=== PATIENT | female | born 2000 | race Two or more races ===

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

== ENCOUNTER 2019-08-29 12:53 | Emergency (ER) | payer OTHER, SELFPAY ==
[2019-08-29 12:54] VITALS: BP 125/88; PULSE 120; RESP 16; TEMP 37; O2SAT 98; BMI 38.7
--- NOTE | 2019-08-29 13:17 | HMH.EDWNDL ---
ED Disposition Clinical Impression: Candidiasis Disposition: Home, Self-Care Condition on Discharge: Good Instructions: DI for Yeast Infection-Skin Prescriptions: Fluconazole 150 mg PO ONCE #1 tab Prescription Printed Referrals: Pia Bettencourt [Primary Care Provider] - 3 days - Critical Care Critical Care Time: No Attestation: On 08/29/19, the high probability of a clinically significant, sudden or life threatening deterioration of the following system(s) required my full and direct attention, intervention and personal management. The time I documented below is in addition to time spent performing reported procedures but includes the following listed in this critical care notation. Medical Decision Making - Medical Records Medical records reviewed: Yes: I reviewed the patient's medical records. - Xavi Inquiry Pt receiving controlled substance: No Vital Signs: 08/29/19 12:54 Temperature 98.6 F Temperature Source Oral Pulse Rate [Left Radial] 120 H Respiratory Rate 16 Blood Pressure [Right Arm] 125/88 Blood Pressure Mean [Right Arm] 100 Blood Pressure Position [Right Arm] Sitting 02 Sat by Pulse Oximetry 98 Oxygen Delivery Method Room Air Orders (Tests/Meds): ED MEDICATIONS Generic Name Dose Route Start Last Admin Trade Name Sourav PRN Reason Stop Dose Admin Fluconazole 150 mg 08/29/19 13:15 08/29/19 13:16 Diflucan 200mg Tablet PO 09/05/19 13:14 150 mg DAILY ALEJANDRA Administration Protocol Medical Decision Narrative: Trace blood present around the umbilicus and there is an odor coming from the area of that is most consistent with candidiasis. Given fluconazole here and discharged home with prescription for the same to take on 08/31/2019. If she develops fevers or symptoms do not improve with this treatment, advised follow-up with PCP to consider antibiotic. Currently there are no signs of cellulitis or abscess. She has no abdominal pain/drainage that would suggest acute intra-abdominal infection, communicating fistula, abscess at this time. Wound/Laceration HPI - General Chief Complaint: Wound/Laceration Stated Complaint: belly button bleeding Time Seen by Provider: 08/29/19 13:18 Mode of Arrival: Ambulatory Limitations: No Limitations Description of Symptoms (Recalled from ER Triage Doc. by RN): to ed per pvt car with c/o bleeding in by belly button and pain around area x 2 days - History of Present Illness HPI narrative: This is a 18-year-old female with a past medical history significant for hypertension, anxiety who presents to the emergency department for evaluation of minimal bleeding from her umbilicus for the last 2 days. No known trauma. No fevers. This is not happened to her before. No abdominal pain. She just has pain around the umbilicus. No nausea, vomiting, urinary symptoms. - Related Data Home Medications Medication Instructions Recorded Confirmed fluoxetine 40 mg capsule 40 mg PO DAILY cap 05/13/19 05/13/19 hydroxyzine HCl 25 mg tablet 25 mg PO ONCE tab 05/13/19 05/13/19 lisinopril 10 mg tablet 10 mg PO DAILY tab 05/13/19 05/13/19 polyethylene glycol 3350 17 17 g PO DAILY g 05/13/19 05/13/19 gram/dose oral powder Previous Rx's Medication Instructions Recorded qsrnrvprqpjmlyf-ysgqepbvwdjbsos-AF 10 ml PO Q4-6H PRN 7 Days #118 ml 05/13/19 2 mg-30 mg-10 mg/5 mL oral syrup Fluconazole 150 mg PO ONCE #1 tab 08/29/19 Allergies Allergy/AdvReac Type Severity Reaction Status Date / Time acetaminophen [ACETAMINOPHEN] Allergy Unknown I-HIVES Verified 05/13/19 18:12 codeine [CODEINE] Allergy Unknown I-RASH Verified 05/13/19 18:12 Penicillins [PENICILLINS] Allergy Unknown I-HIVES Verified 05/13/19 18:12 [facility] History - Hepatitis A Screen Drug use history?: No High risk sexual behaviors?: No History of sexually transmitted infection?: No Currently employed?: No Childcare worker?: No Do you have indoor plumbing?: Yes Do you
[2019-08-29 13:28] VITALS: BP 145/78; PULSE 78; RESP 16; TEMP 36.6; O2SAT 98
== END 2019-08-29 13:29 | disposition home or self-care (01) ==
PROVIDERS: Emergency Provider Emergency Medicine; PCP Nurse Practitioner Family
DX: B37.2 Candidiasis of skin and nail (principal); I10 Essential (primary) hypertension; F41.8 Other specified anxiety disorders; Z88.0 Allergy status to penicillin; Z88.5 Allergy status to narcotic agent
CPT/HCPCS: 99281

== ENCOUNTER 2020-07-17 11:30 | Emergency (ER) | payer OTHER, SELFPAY ==
[2020-07-17 11:48] VITALS: BP 142/67; PULSE 86; RESP 17; TEMP 37.1; O2SAT 98; BMI 38.7
[2020-07-17 12:00] LABS: UTC Pregnancy Test, Urine Negative (Negative)
--- NOTE | 2020-07-17 12:14 | HMH.EDUTC ---
[facility] Disposition Clinical Impression: Migraine Qualifiers: Migraine type: unspecified Status migrainosus presence: without status migrainosus Intractability: not intractable Qualified Code(s): G43.909 - Migraine, unspecified, not intractable, without status migrainosus Disposition: Home, Self-Care Condition on Discharge: Good Instructions: Migraine -- Adult, DI for Migraine, DI for COVID-19 (Suspected or Confirmed ), Coronavirus Disease 2018, Preventing the Spread of Coronavirus Discharge Instructions Additional Instructions: *Monitor Temp, Over the counter Motrin or Tylenol as directed/as needed Tylenol every 4 hours and Motrin every 6 hours (as long as your family doctor has told you that you can take it) for fever or pain. and straight to ER if unable to lower temp less than 101.0 after medication given Go home lay down and sleep off remaining of migraine headache If you continue to have Migraine make sure to follow up with your family Doctor Follow up IMMEDIATELY for new or worsening symptoms or no Noticeable improvement over the next 48-72 hours. 911 for difficulty breathing or swallowing You were tested for today for COVID19 your test result should be back in the next 24-48 hours, you may call to the [facility] to see if your test results are back in the next 48 hours [phone] [facility] hours are 9am-9pm You was given a handout with instructions for Self Quarantine and Self isolation for while you wait on test results and what to do if they are positive If you are positive the Health Dept will be contacting you also Referrals: Vlad Jaimes MD [Primary Care Provider] - As needed Forms: Work/School Release Time of Disposition: 12:59 Medical Decision Making - Xavi Inquiry Pt receiving controlled substance: No Xavi was queried for this patient: No Vital Signs: 07/17/20 11:48 Temperature 98.7 F Temperature Source Oral Pulse Rate [Right Brachial] 86 Respiratory Rate 17 Blood Pressure [Right Arm] 142/67 H Blood Pressure Mean [Right Arm] 92 Blood Pressure Source [Right Arm] Automatic Cuff Blood Pressure Position [Right Arm] Sitting 02 Sat by Pulse Oximetry 98 Oxygen Delivery Method Room Air - Lab Data Lab Results 07/17/20 11:47: [facility] Negative Orders (Tests/Meds): ED MEDICATIONS Discontinued Medications Generic Name Dose Route Start Last Admin Trade Name Freq PRN Reason Stop Dose Admin Diphenhydramine HCl 25 mg 07/17/20 12:19 07/17/20 12:39 Diphenhydramine 50mg/Ml Vial IM 07/17/20 12:20 25 mg ONCE ONE Administration Ketorolac Tromethamine 60 mg 07/17/20 12:19 07/17/20 12:40 Ketorolac 60mg/2ml Vial IM 07/17/20 12:20 60 mg ONCE ONE Administration Metoclopramide HCl 10 mg 07/17/20 12:19 07/17/20 12:39 Metoclopramide 10mg Tablet PO 07/17/20 12:20 10 mg ONCE ONE Administration ORDERS Category Date Time Status Covid-19 Nasal PCR ([facility]) Routine Lab 07/17/20 12:00 Received Medical Decision Narrative: Patient state that she has not taken her Paxil or other medcations in over a month States that she has been out and not got them refilled Patient states that migraine now gone after medication Patient dc'd home [facility] HPI - General Stated complaint: headache Time Seen by Provider: 07/17/20 12:15 Mode of Arrival: Ambulatory Source of Information: Patient Limitations: No Limitations Description of Symptoms (Recalled from Triage Doc. by RN): PATIENT COMPLAINS OF A HEADACHE X4 DAYS, NAUSEA, COUGH & RUNNY NOSE HEENT Symptoms (Recalled from RN notes): Yes Resp Symptoms (Recalled from RN notes): No Skin Symptoms (Recalled from RN notes): No MS Symptoms (Recalled from RN notes): No Functional Status (Recalled from RN notes): WNL - History of Present Illness Provider Complaint: Patient state that she works at [employer] unsure if she has been exposed to COVID or not States that she has a history of migraine headaches and has had Headache for about 4 days
[2020-07-17 13:05] VITALS: BP 142/67; PULSE 86; RESP 17; TEMP 37.1; O2SAT 98
== END 2020-07-17 13:06 | disposition home or self-care (01) ==
PROVIDERS: Emergency Provider Nurse Practitioner; PCP Family Medicine
DX: G43.909 Migraine, unspecified, not intractable, without status migrainosus (principal); F41.8 Other specified anxiety disorders; I10 Essential (primary) hypertension; Z88.0 Allergy status to penicillin; Z88.5 Allergy status to narcotic agent
CPT/HCPCS: 81025; 96372; 99202; G0463; U0003

== ENCOUNTER → 2020-09-26 17:05 | Outpatient (CLI) | payer OTHER, SELFPAY ==
[2020-09-26 17:49] LABS: Basophils # 0.1 K/mm3 (0-0.2); Basophils % 0.6 % (0.1-2.0); Eosinophils # 0.2 K/mm3 (0.0-0.4); Hematocrit 39.8 % (37.0-47.0); Hemoglobin 13.7 g/dL (12.2-16.2); Lymphocytes # 2.5 K/mm3 (0.7-4.5); Lymphocytes % 30.3 % (10-50); Mean Corpuscular HGB Conc 34.4 g/dL (31.8-35.4); Mean Corpuscular Hemoglobin 27.4 pg (27.0-31.2); Mean Corpuscular Volume 79.6 fl (81-99); Mean Platelet Volume 8.8 fl (7.4-10.4); Monocytes # 0.4 K/mm3 (0.1-1.0); Monocytes % 4.3 % (1.7-9.3); Neutrophils # 5.2 K/mm3 (1.8-7.8); Neutrophils % 62.9 % (37.0-80.0); Platelet Count 245 K/mm3 (142-424); Red Cell Distribution Width 14.2 % (11.5-17.5); White Blood Count 8.3 K/mm3 (4.8-10.8)
== END ==
PROVIDERS: Visit Provider Obstetrics & Gynecology
DX: N92.0 Excessive and frequent menstruation with regular cycle (principal)
CPT/HCPCS: 36415; 85025

== ENCOUNTER 2021-02-07 03:53 | Emergency (ER) | payer OTHER, SELFPAY ==
[2021-02-07 03:54] VITALS: BP 155/95; PULSE 84; RESP 16; TEMP 36.8; O2SAT 97; BMI 38.7
[2021-02-07 04:23] LABS: Microscopic, Urine URINE MICROSCOPIC (MICROSCOPIC)
--- NOTE | 2021-02-07 04:23 | CT_ITS ---
PROCEDURE INFORMATION: Exam: CT Abdomen And Pelvis With Contrast Exam date and time: 02/07/2021 4:23 AM Age: 20 years old Clinical indication: Nausea and vomiting; Additional info: N v TECHNIQUE: Imaging protocol: Computed tomography of the abdomen and pelvis with contrast. Radiation optimization: All CT scans at this facility use at least one of these dose optimization techniques: automated exposure control; mA and/or kV adjustment per patient size (includes targeted exams where dose is matched to clinical indication); or iterative reconstruction. Contrast material: ISOVUE; Contrast volume: 70 ml; Contrast route: IV; COMPARISON: PEL US PELVIS (NO FETUS) 07/23/2016 11:18 AM FINDINGS: Lungs: No bibasilar consolidation. Liver: No suspicious mass. Gallbladder and bile ducts: No calcified stones. No ductal dilation. Pancreas: No ductal dilation. No peripancreatic inflammatory changes. Spleen: Unremarkable. Adrenal glands: No mass. Kidneys and ureters: No hydronephrosis. Unremarkable renogram. Stomach and bowel: See Appendix finding. Appendix: The appendix is not identified, but there is no pericecal inflammatory changes. Intraperitoneal space: No free air. No ascites. Vasculature: No abdominal aortic aneurysm. Lymph nodes: No enlarged lymph nodes. Urinary bladder: Unremarkable as visualized. Reproductive: The uterus is present. Bones/joints: No suspicious osseous lesion. No acute fracture. Soft tissues: No suspicious mass. IMPRESSION: No acute findings.
[2021-02-07 04:25] LABS: Appearance,Urine CLEAR (Clear); Bilirubin,Urine Negative (Negative); Blood, Urine TRACE-I (Negative); Color,Urine YELLOW (Yellow); Glucose,Urine (UA) Negative (Negative); Ketones,Urine Negative (Negative); Leukocyte Esterase,Urine Negative (Negative); Nitrate,Urine Negative (Negative); Protein,Urine Negative (Negative); Specific Gravity, Urine >= 1.030 (1.005-1.030); Urobilinogen,Urine 0.2 EU/dl (0.2)
--- NOTE | 2021-02-07 04:25 | HMH.EDDIZZ ---
ED Disposition Clinical Impression: Labyrinthitis Qualifiers: Laterality: unspecified laterality Qualified Code(s): H83.09 - Labyrinthitis, unspecified ear Disposition: Home, Self-Care Condition on Discharge: Good Instructions: DI for Vertigo Additional Instructions: fluids and use meds and call pcp this am Prescriptions: Meclizine HCl [Antivert 25mg tablet] 25 mg PO TID #9 tab Transmission Status: Pending to [facility] ondansetron HCL [Zofran 4mg Tab] 4 mg PO TID #21 tab Transmission Status: Pending to [facility] Referrals: Pia Bettencourt [Primary Care Provider] - - Critical Care Critical Care Time: No Attestation: On 02/07/21, the high probability of a clinically significant, sudden or life threatening deterioration of the following system(s) required my full and direct attention, intervention and personal management. The time I documented below is in addition to time spent performing reported procedures but includes the following listed in this critical care notation. Medical Decision Making - Medical Records Medical records reviewed: Yes: I reviewed the patient's medical records. - Xavi Inquiry Pt receiving controlled substance: No Vital Signs: 02/07/21 03:54 02/07/21 05:14 02/07/21 05:30 Temperature 98.3 F Temperature Source Oral Pulse Rate 80 73 Pulse Rate [Left] 84 Respiratory Rate 16 Blood Pressure 117/70 137/80 Blood Pressure [Right Arm] 155/95 H Blood Pressure Mean 96 Blood Pressure Mean [Right Arm] 115 02 Sat by Pulse Oximetry 97 99 97 - Lab Data Lab Results 02/07/21 04:04: Urine Color Yellow, Urine Appearance Clear, Urine pH 6.0, Ur Specific [place] >= 1.030, Urine Protein Negative, Urine Glucose (UA) Negative, Urine Ketones Negative, Urine Blood Trace-i, Urine Nitrate Negative, Urine Bilirubin Negative, Urine Urobilinogen 0.2, Ur Leukocyte Esterase Negative, Urine RBC Occasional, Urine WBC 3-5, Ur Squamous Epith Cells 3-5, Urine Bacteria 2+ 02/07/21 04:04: Urine HCG, Qual Negative 02/07/21 04:07: WBC 8.2, RBC 5.16, Hgb 14.0, Hct 41.5, MCV 80.6 L, MCH 27.2, MCHC 33.7, RDW 14.1, Plt Count 276, MPV 8.8, Neut % (Auto) 77.3, Lymph % (Auto) 18.5, Motley % (Auto) 2.4, Eos % (Auto) 1.4, Baso % (Auto) 0.5, Neut # (Auto) 6.3, Lymph # (Auto) 1.5, [place] # (Auto) 0.2, Eos # (Auto) 0.1, Baso # (Auto) 0.0, ESR 59 H 02/07/21 04:07: Amylase 56, Lipase 98, Procalcitonin 0.059 02/07/21 04:07: Sodium 139, Potassium 3.8, Chloride 106, Carbon Dioxide 22, Anion Gap 14.8, BUN 7, Creatinine 0.50 L, Estimated Creat Clear 303 H, Estimated GFR 154, Est GFR ( Amer) 187, Glucose 145 H, Calcium 8.7, Total Bilirubin 0.2, AST 100 H, ALT 160 H, Alkaline Phosphatase 90, Total Protein 7.6, Albumin 4.2, Globulin 3.4 H, Albumin/Globulin Ratio 1.2 Result diagrams: 02/07/21 04:07 02/07/21 04:07 Orders (Tests/Meds): ED MEDICATIONS Generic Name Dose Route Start Last Admin Trade Name Freq PRN Reason Stop Dose Admin Sodium Chloride 1,000 mls @ 999 mls/hr 02/07/21 04:30 02/07/21 04:21 Sod Chlor 0.9% 1000ml Bag IV 02/07/21 05:30 999 mls/hr .Q1H1M ALEJANDRA Administration Sodium Chloride 1,000 mls @ 999 mls/hr 02/07/21 05:30 02/07/21 05:52 Sod Chlor 0.9% 1000ml Bag IV 02/07/21 06:30 999 mls/hr .Q1H1M ALEJANDRA Administration Discontinued Medications Generic Name Dose Route Start Last Admin Trade Name Freq PRN Reason Stop Dose Admin Famotidine 20 mg 02/07/21 04:24 02/07/21 04:29 Famotidine 20mg/2ml Vial IV 02/07/21 04:25 20 mg ONCE ONE Administration Iopamidol 70 ml 02/07/21 04:55 02/07/21 04:56 Iopamidol-370 (76%);100ml Bottle IV 02/07/21 04:56 70 ml ONCE ONE Administration Ketorolac Tromethamine 30 mg 02/07/21 04:24 02/07/21 04:31 Ketorolac 30mg/Ml Vial IV 02/07/21 04:25 30 mg ONCE ONE Administration Methylprednisolone Sodium Succinate 125 mg 02/07/21 05:48 02/07/21 05:52 Methylprednisolone Sod Succ 125mg Vi
[2021-02-07 04:34] LABS: Urine Pregnancy, HCG Qual. Negative (Negative)
[2021-02-07 04:42] LABS: Chloride 106 mmol/L (98-107); Potassium 3.8 mmoL/L (3.5-5.1); Sodium 139 mmol/L (136-145)
--- NOTE | 2021-02-07 04:42 | CT_ITS ---
PROCEDURE INFORMATION: Exam: CT Head Without Contrast Exam date and time: 02/07/2021 4:42 AM Age: 20 years old Clinical indication: Dizziness; Patient HX: Dizzy for 3hrs TECHNIQUE: Imaging protocol: Computed tomography of the head without contrast. Radiation optimization: All CT scans at this facility use at least one of these dose optimization techniques: automated exposure control; mA and/or kV adjustment per patient size (includes targeted exams where dose is matched to clinical indication); or iterative reconstruction. COMPARISON: No relevant prior studies available. FINDINGS: Brain: No intracranial hemorrhage. No mass. No definite edema. Cerebral ventricles: No hydrocephalus. Paranasal sinuses: No acute sinusitis. Mastoid air cells: No significant effusion. Orbital cavity: Unremarkable as visualized. Bones/joints: No acute fracture. Soft tissues: Unremarkable. IMPRESSION: No definite acute intracranial abnormality. If symptoms persist, consider MRI.
[2021-02-07 04:45] LABS: Alanine Aminotransferase 160 U/L (12-78); Albumin Level 4.2 g/dl (3.5-5.0); Albumin/Globulin Ratio 1.2 (1.1-1.8); Alkaline Phosphatase 90 U/L (38-126); Anion Gap 14.8 mEq/L (5-15); Aspartate Amino Transferase 100 U/L (14-36); Bilirubin,Total 0.2 mg/dl (0.2-1.3); Blood Urea Nitrogen 7 mg/dl (7-17); Calcium 8.7 mg/dl (8.4-10.2); Carbon Dioxide 22 mmol/L (22.0-30.0); Creatinine Clearance Estimated 303 mL/min (50-200); Estimated Glomerular Filt Rate 154 ml/min (>60); GFR (African American) 187 ML/MIN (>60); Globulin 3.4 g/dL (1.3-3.2); Glucose 145 mg/dl (74-100); Total Protein,Serum 7.6 g/dl (6.3-8.2)
[2021-02-07 04:46] LABS: RBC,Urine Occasional #/hpf (0-3)
[2021-02-07 04:47] LABS: Bacteria,Urine 2+ /lpf
[2021-02-07 04:49] LABS: Basophils % 0.5 % (0.1-2.0); Eosinophils # 0.1 K/mm3 (0.0-0.4); Eosinophils % 1.4 % (0.1-12.0); Hematocrit 41.5 % (37.0-47.0); Lymphocytes # 1.5 K/mm3 (0.7-4.5); Lymphocytes % 18.5 % (10-50); Mean Corpuscular HGB Conc 33.7 g/dL (31.8-35.4); Mean Corpuscular Hemoglobin 27.2 pg (27.0-31.2); Mean Corpuscular Volume 80.6 fl (81-99); Mean Platelet Volume 8.8 fl (7.4-10.4); Monocytes # 0.2 K/mm3 (0.1-1.0); Monocytes % 2.4 % (1.7-9.3); Neutrophils # 6.3 K/mm3 (1.8-7.8); Neutrophils % 77.3 % (37.0-80.0); Platelet Count 276 K/mm3 (142-424); Red Blood Count 5.16 M/mm3 (4.20-5.40); Red Cell Distribution Width 14.1 % (11.5-17.5); White Blood Count 8.2 K/mm3 (4.8-10.8)
[2021-02-07 04:59] LABS: Amylase 56 U/L (30-110); Lipase 98 U/L (23-300)
[2021-02-07 05:03] LABS: Procalcitonin 0.059 ng/mL (0.0-2.0)
[2021-02-07 05:14] VITALS: BP 117/70; PULSE 80; O2SAT 99
[2021-02-07 05:27] LABS: Erythrocyte Sedimentation Rate 59 mm/hr (0-20)
[2021-02-07 05:30] VITALS: BP 137/80; PULSE 73; O2SAT 97
[2021-02-07 06:32] VITALS: BP 145/91; PULSE 80; RESP 16; TEMP 36.8; O2SAT 98
== END 2021-02-07 06:49 | disposition home or self-care (01) ==
PROVIDERS: Emergency Provider Emergency Medicine; PCP Nurse Practitioner Family
DX: H83.09 Labyrinthitis, unspecified ear (principal); F41.8 Other specified anxiety disorders; I10 Essential (primary) hypertension; Z88.0 Allergy status to penicillin
CPT/HCPCS: 70450; 74177; 80053; 81001; 81025; 82150; 83690; 84145; 85025; 85651; 87086; 96365; 96366; 96375; 99283; J2405; Q9967

== ENCOUNTER 2021-02-14 19:33 | Emergency (ER) | payer OTHER, SELFPAY ==
[2021-02-14 19:46] VITALS: BP 156/96; PULSE 89; RESP 16; TEMP 36.7; O2SAT 99; BMI 36.0
[2021-02-14 20:05] VITALS: BP 143/83; PULSE 85; RESP 16; TEMP 36.8; O2SAT 97; BMI 40.1
[2021-02-14 20:19] LABS: UTC Strep Screen (Rapid) Negative (Negative)
--- NOTE | 2021-02-14 20:39 | HMH.EDUTC ---
[facility] – [place] Disposition Clinical Impression: Viral syndrome Otitis media Qualifiers: Otitis media type: suppurative Chronicity: acute Laterality: left Recurrence: non-recurrent Spontaneous tympanic membrane rupture: without spontaneous rupture Qualified Code(s): H66.002 - Acute suppurative otitis media without spontaneous rupture of ear drum, left ear Disposition: Home, Self-Care Condition on Discharge: Good Instructions: Middle Ear Infection, DI for COVID-19 (Suspected or Confirmed ), Preventing the Spread of Coronavirus Discharge Instructions Additional Instructions: Drink plenty of fluids. Take tylenol or ibuprofen for pain or fever. Take the medications as directed. Follow up with your regular doctor. GO TO THE ER FOR ANY WORSENING SYMPTOMS Quarantine until you know the results of your covid-19 test. If it is positive, the health department should call you and give you further instructions about your length of Quarantine and other things. Notify your school or workplace of your results and follow their instructions regarding return to work/school. Prescriptions: Brompheniramine/Pseudoephed/Dm [Bromfed Dm Cough Syrup] 5 ml PO Q6HP PRN #240 ml PRN Reason: Cough Transmission Status: Received by [facility] Azithromycin [Z-Tc 250mg Tab*] 250 mg PO UD DOSE PK #6 tab Transmission Status: Received by [facility] Referrals: Pia Bettencourt [Primary Care Provider] - Time of Disposition: 21:19 Medical Decision Making - Medical Records Medical records reviewed: No: I reviewed the patient's medical records. - Xavi Inquiry Pt receiving controlled substance: No Vital Signs: 02/14/21 19:46 02/14/21 20:05 02/14/21 22:03 Temperature 98.1 F 98.2 F 98.2 F Temperature Source Oral Oral Pulse Rate 85 Pulse Rate [Apical] 89 85 Respiratory Rate 16 16 16 Blood Pressure 143/83 H Blood Pressure [Right Arm] 156/96 H 143/83 H Blood Pressure Mean [Right Arm] 116 103 Blood Pressure Source [Right Arm] Automatic Cuff Blood Pressure Position [Right Arm] Sitting 02 Sat by Pulse Oximetry 99 97 Oxygen Delivery Method Room Air - Lab Data Lab results reviewed: Yes: I reviewed the patient's lab results. Lab Results 02/14/21 20:18: Strep Scn Rapid Clinic Negative Orders (Tests/Meds): ED MEDICATIONS Discontinued Medications Generic Name Dose Route Start Last Admin Trade Name Sourav PRN Reason Stop Dose Admin Ibuprofen 800 mg 02/14/21 21:17 02/14/21 21:26 Ibuprofen 400 Mg Tablet PO 02/14/21 21:18 Not Given ONCE ONE ORDERS Category Date Time Status Full Resp Panel w/COVID ([facility]) Routine Lab 02/14/21 20:44 Received Strep Screen Confirmation Routine Micro 02/14/21 20:18 Received [facility] [place] HPI - General Stated complaint: vomiting, headache, ear pain Time Seen by Provider: 02/14/21 20:39 Mode of Arrival: Ambulatory Source of Information: Patient Limitations: No Limitations Description of Symptoms (Recalled from Triage Doc. by RN): pt c/o ear aches, TRAORE, nausea, and a stomach ache x1 wk. HEENT Symptoms (Recalled from RN notes): Yes (ears ache and TRAORE) Resp Symptoms (Recalled from RN notes): No Skin Symptoms (Recalled from RN notes): No MS Symptoms (Recalled from RN notes): No Functional Status (Recalled from RN notes): wnl - History of Present Illness Provider Complaint: She c/o n/v/d, left ear pain, cough, and head ache since this morning. She has body aches also. She denies shortness of breath. - Related Data Home Medications Medication Instructions Recorded Confirmed polyethylene glycol 3350 17 17 g PO DAILY g 05/13/19 05/13/19 gram/dose oral powder Previous Rx's Medication Instructions Recorded norethindrone 1 mg-ethin. 1 cap PO DAILY #28 cap 09/26/20 estradiol 20 mcg (24)-iron 75 mg (4) capsule Meclizine HCl [Antivert 25mg 25 mg PO TID #9 tab 02/07/21 tablet] ondansetron HCL [Zofran 4mg Tab] 4 mg PO TID #21
[2021-02-14 20:55] LABS: Adenovirus,PCR Not Detected (NotDetected); Bordetella Pertussis Not Detected (NotDetected); Chlamydophila Pneumoniae, PCR Not Detected (NotDetected); Coronavirus 229E Not Detected (NotDetected); Coronavirus NL63 Not Detected (NotDetected); Coronavirus OC43 Not Detected (NotDetected); Coronovirus HKU1,PCR Not Detected (NotDetected); Human Metapneumovirus Not Detected (NotDetected); Influenza A, PCR Not Detected (NotDetected); Influenza AH1, 2009 Not Detected (NotDetected); Influenza AH1, PCR Not Detected (NotDetected); Influenza AH3,PCR Not Detected (NotDetected); Influenza B, PCR Not Detected (NotDetected); Mycoplasma Pneumoniae, PCR Not Detected (NotDetected); Parainfluenza 1, PCR Not Detected (NotDetected); Parainfluenza 2, PCR Not Detected (NotDetected); Parainfluenza 3, PCR Not Detected (NotDetected); Parainfluenza 4, PCR Not Detected (NotDetected); Respiratory Syncytial Virus Not Detected (NotDetected); Rhinovirus/Enterovirus Not Detected (NotDetected)
[2021-02-14 22:03] VITALS: BP 143/83; PULSE 85; RESP 16; TEMP 36.8
[2021-02-14 23:36] LABS: Coronavirus 19, PCR Detected (NotDetected)
== END 2021-02-14 22:04 | disposition home or self-care (01) ==
LOC: ER 19:38 → UTC 19:50
PROVIDERS: Emergency Provider Nurse Practitioner Family; PCP Nurse Practitioner Family
DX: H66.002 Acute suppurative otitis media without spontaneous rupture of ear drum, left ear (principal); B34.9 Viral infection, unspecified; F41.8 Other specified anxiety disorders
CPT/HCPCS: 87581; 87632; 87798; 87880; 99203; C9803; G0463; U0003; U0005